=== PATIENT | female | born 1985 | race American Indian/Alaskan Native ===

== ENCOUNTER 2018-11-13 20:02 | Emergency (ER) | payer MEDICAID ==
--- NOTE | 2018-11-13 20:09 | Emergency Department Report ---
Blank Doc - Documentation Documentation: This is a 32-year-old female that presents with nausea vomiting. Patient had a dental abscess and was seen by a dentist and was given Amox and "pain medicatoin" and now has nausea with vomiting. Denies fever. This initial assessment diagnostic orders/clinical plan/treatment(s) is/are subject to change based on patient's health status, clinical progression and re- assessment by fellow clinical providers in the ED. Further treatment and workup at subsequent clinical providers discretion. Patient/guardians urged not to elope from ED s their condition may be serious if not clinically assessed and managed. Initial orders include: 1-Patient sent to MAIN for further evaluation and treatment 2- labs
[2018-11-13 20:12] VITALS: BP 140/85
[2018-11-13 20:37] LABS: Basophils # (Auto) 0.1 K/mm3 (0.0-0.1); Basophils % (Auto) 0.8 % (0.0-1.8); Eosinophils # (Auto) 0.1 K/mm3 (0.0-0.4); Eosinophils % (Auto) 1.7 % (0.0-4.3); Hematocrit 37.7 % (30.3-42.9); Hemoglobin 12.4 gm/dl (10.1-14.3); Lymphocytes # (Auto) 1.9 K/mm3 (1.2-5.4); Lymphocytes % (Auto) 31.4 % (13.4-35.0); Mean Corpuscular HGB Conc 33 % (30-34); Mean Corpuscular Volume 83 fl (79-97); Monocytes # (Auto) 0.7 K/mm3 (0.0-0.8); Monocytes % (Auto) 11.2 % (0.0-7.3); Platelet Count 381 K/mm3 (140-440); Red Blood Count 4.56 M/mm3 (3.65-5.03); Red Cell Distribution Width 15.1 % (13.2-15.2)
[2018-11-13 20:51] LABS: Alanine Aminotransferase 17 units/L (7-56); Albumin 3.8 g/dL (3.9-5); BUN/Creatinine Ratio 6; Blood Urea Nitrogen 5 mg/dL (7-17); Hemolysis Index 15
[2018-11-13 20:59] LABS: Bacteria,Urine 1+ /HPF (Negative); Bilirubin,Urine NEG (Negative); Blood,Urine NEG (Negative); Color,Urine Amber (Yellow); Mucus,Urine 1+ /HPF
[2018-11-13] MEDS ORDERED: TORADOL IV ONE (22:06)
[2018-11-13] MEDS ORDERED: NACL 0.9% 1000 ML 1,000 ML IV ONE (22:06)
[2018-11-13] MEDS ORDERED: ZOFRAN IV ONE (22:06)
[2018-11-13] MEDS ORDERED: ROCEPHIN/NS 1 GM/50 ML 1 GM/50 ML BAG IV ONE (22:06)
--- NOTE | 2018-11-13 22:54 | Emergency Department Report ---
ED ENT HPI - General Chief complaint: Nausea/Vomiting/Diarrhea Stated complaint: SORE THROAT PAIN Time Seen by Provider: 11/13/18 20:07 Source: EMS Mode of arrival: Ambulatory Limitations: No Limitations - History of Present Illness Initial comments: Patient 32-year-old female with history of infected dental caries patient currently been treated for same and started to have nausea and vomiting after starting amoxicillin there is no hives or shortness of breath no wheezing no stridor patient has tolerated penicillin previously patient states no anaphylaxis symptoms nausea and vomiting as generalized 2 episodes today last 4 hours ago last by mouth intake 1 hour ago there is no fever no chills no back pain no vaginal discharge no urgency frequency or hematuria symptoms are relieved by nothing tried, symptoms are exacerbated by nothing, complaint: tooth pain Onset/Timin -: week(s) Location: tooth # (17&18) Severity: moderate Severity scale (0 -10): 6 Quality: aching, sharp Consistency: constant Improves with: none Worsens with: eating, other (hot and cold stimuli ) Context- Dental: history of dental caries, poor dental care Associated Symptoms: fever, gum swelling, toothache - Related Data Previous Rx's Medication Instructions Recorded Last Taken Type Acetaminophen [Tylenol Extra 1,000 mg PO QID PRN #30 tablet 11/13/18 Unknown Rx Strength] Chlorhexidine Mouthwash [Peridex] 15 ml MM BID #1 bottle 11/13/18 Unknown Rx Clindamycin [Clindamycin CAP] 300 mg PO Q6H 10 Days #30 capsule 11/13/18 Unknown Rx Allergies Allergy/AdvReac Type Severity Reaction Status Date / Time No Known Allergies Allergy Unverified 11/13/18 20:05 ED Dental HPI - General Chief complaint: Nausea/Vomiting/Diarrhea Stated complaint: SORE THROAT PAIN Time Seen by Provider: 11/13/18 20:07 Source: EMS Mode of arrival: Ambulatory Limitations: No Limitations - Related Data Previous Rx's Medication Instructions Recorded Last Taken Type Acetaminophen [Tylenol Extra 1,000 mg PO QID PRN #30 tablet 11/13/18 Unknown Rx Strength] Chlorhexidine Mouthwash [Peridex] 15 ml MM BID #1 bottle 11/13/18 Unknown Rx Clindamycin [Clindamycin CAP] 300 mg PO Q6H 10 Days #30 capsule 11/13/18 Unknown Rx Allergies Allergy/AdvReac Type Severity Reaction Status Date / Time No Known Allergies Allergy Unverified 11/13/18 20:05 ED Review of Systems ROS: Stated complaint: SORE THROAT PAIN Other details as noted in HPI Constitutional: denies: chills, fever Eyes: denies: eye pain, eye discharge, vision change ENT: dental pain (current L) Respiratory: denies: cough, shortness of breath, wheezing Cardiovascular: denies: chest pain, palpitations Endocrine: no symptoms reported Gastrointestinal: abdominal pain (superpubic ), nausea, vomiting. denies: diarrhea, constipation, hematemesis, melena, hematochezia Genitourinary: denies: urgency, dysuria, frequency, hematuria, discharge Musculoskeletal: denies: back pain, joint swelling, arthralgia Skin: denies: rash, lesions Neurological: denies: headache, weakness, paresthesias Psychiatric: denies: anxiety, depression Hematological/Lymphatic: denies: easy bleeding, easy bruising ED Past Medical Hx - Past Medical History Additional medical history: Bronchitis - Surgical History Additional Surgical History: - Social History Smoking Status: Never Smoker Substance Use Type: None - Medications Home Medications: Home Medications Medication Instructions Recorded Confirmed Last Taken Type Acetaminophen [Tylenol Extra 1,000 mg PO QID PRN #30 tablet 11/13/18 Unknown Rx Strength] Chlorhexidine Mouthwash [Peridex] 15 ml MM BID #1 bottle 11/13/18 Unknown Rx Clindamycin [Clindamycin CAP] 300 mg PO Q6H 10 Days #30 capsule 11/13/18 Unknown Rx ED Physical Exam - General Limitations: No Limitations General appearance: alert, in no apparent distress - Head Head exam: Present: atraumatic, normocephalic - Eye Eye exam: Present: normal appearance, PERRL, EOMI Pupils: Present: normal accommodation - ENT ENT exam: Present: mucous membranes moist, TM's normal bilaterally, normal ext ernal ear exam - Expanded ENT Exam Expanded Mouth exam: Absent: trismus Teeth exam: Present: dental caries, fractured tooth #, dental tenderness # (17&18 mild gum erythema no focal abscess no facial swelling ) Throat exam: Positive: tonsillar erythema. Negative: tonsillomegaly (his family does), tonsillar exudate, R peritonsillar mass, L peritonsillar mass - Neck Neck exam: Present: normal inspection, full ROM. Absent: tenderness (the), lymphadenopathy, thyromegaly - Respiratory Respiratory exam: Present: normal lung sounds bilaterally. Absent: respiratory distress, wheezes, stridor, chest wall tenderness - Cardiovascular Cardiovascular Exam: Present: regular rate, normal rhythm, normal heart sounds. Absent: systolic murmur, diastolic murmur, rubs, gallop - GI/Abdominal GI/Abdominal exam: Present: soft, normal bowel sounds. Absent: distended, tenderness, guarding, rebound, rigid, bruit, hernia - Rectal Rectal exam: Present: deferred - Extremities Exam Extremities exam: Present: normal inspection, full ROM, normal capillary refill. Absent: tenderness, pedal edema, joint swelling, calf tenderness - Back Exam Back exam: Present: normal inspection, full ROM. Absent: tenderness, CVA tenderness (R), CVA tenderness (L), muscle spasm (Z), paraspinal tenderness, vertebral tenderness, rash noted (he) - Neurological Exam Neurological exam: Present: alert, oriented X3, CN II-XII intact, normal gait - Psychiatric Psychiatric exam: Present: normal affect, normal mood - Skin Skin exam: Present: warm, dry, intact, normal color. Absent: rash ED Course Vital Signs 11/13/18 11/13/18 20:06 22:30 Temperature 98.5 F Pulse Rate 78 Respiratory 16 18 Rate Blood Pressure 140/85 O2 Sat by Pulse 100 Oximetry ED Medical Decision Making - Lab Data Result diagrams: 11/13/18 20:15 11/13/18 20:15 Labs 11/13/18 11/13/18 11/13/18 20:15 20:15 20:15 WBC 6.1 RBC 4.56 Hgb 12.4 Hct 37.7 MCV 83 MCH 27 L MCHC 33 RDW 15.1 Plt Count 381 Lymph % (Auto) 31.4 Thayer % (Auto) 11.2 H Eos % (Auto) 1.7 Baso % (Auto) 0.8 Lymph # 1.9 Thayer # 0.7 Eos # 0.1 Baso # 0.1 Seg Neutrophils % 54.9 Seg Neutrophils # 3.4 Sodium 138 Potassium 4.3 Chloride 102.8 Carbon Dioxide 24 Anion Gap 16 BUN 5 L Creatinine 0.8 Estimated GFR > 60 BUN/Creatinine Ratio 6 Glucose 103 H Calcium 9.0 Total Bilirubin 0.30 AST 15 ALT 17 Alkaline Phosphatase 75 Total Protein 8.3 H Albumin 3.8 L Albumin/Globulin Ratio 0.8 HCG, Qual Negative Urine Color Urine Turbidity Urine pH Ur Specific [place] Urine Protein Urine Glucose (UA) Urine Ketones Urine Blood Urine Nitrite Urine Bilirubin Urine Urobilinogen Ur Leukocyte Esterase Urine WBC (Auto) Urine RBC (Auto) U Epithel Cells (Auto) Urine Bacteria (Auto) Urine Mucus 11/13/18 20:32 WBC RBC Hgb Hct MCV MCH MCHC RDW Plt Count Lymph % (Auto) Thayer % (Auto) Eos % (Auto) Baso % (Auto) Lymph # Thayer # Eos # Baso # Seg Neutrophils % Seg Neutrophils # Sodium Potassium Chloride Carbon Dioxide Anion Gap BUN Creatinine Estimated GFR BUN/Creatinine Ratio Glucose Calcium Total Bilirubin AST ALT Alkaline Phosphatase Total Protein Albumin Albumin/Globulin Ratio HCG, Qual Urine Color Merna Urine Turbidity Clear Urine pH 5.0 Ur Specific [place] 1.029 Urine Protein 30 mg/dl Urine Glucose (UA) Neg Urine Ketones Neg Urine Blood Neg Urine Nitrite Neg Urine Bilirubin Neg Urine Urobilinogen 4.0 Ur Leukocyte Esterase Mod Urine WBC (Auto) 7.0 H Urine RBC (Auto) 4.0 U Epithel Cells (Auto) 4.0 Urine Bacteria (Auto) 1+ Urine Mucus 1+ - Radiology Data Radiology results: report reviewed, image reviewed nonobstructive gas pattern, - Medical Decision Making These are infected dental caries UA positive for moderate leukocytes Y several small red blood cells given nausea vomiting patient has no history of renal stones denies hematuria denies CVA tenderness denies voiding problem patient is tolerating by mouth intake without signs or symptoms plan treat for UTI with Rocephin 1 g IV piggyback in ED by mouth antibiotics 2 clindamycin by mouth twice a day 3 times a day Peridex mouth rinse patient will follow [facility] dental clinic tomorrow patient will return the ED should symptoms worsen patient verbalizes understanding and agreement with same procedure was stable condition at this time Critical care attestation.: If time is entered above; I have spent that time in minutes in the direct care of this critically ill patient, excluding procedure time. ED Disposition Clinical Impression: Infected dental caries, Dysuria Disposition: TO HOME OR SELFCARE Is pt being admited?: No Does the pt Need Aspirin: No Condition: Stable Instructions: Dental Caries (ED), Urinary Tract Infection in Women (ED) Prescriptions: Acetaminophen [Tylenol Extra Strength] 1,000 mg PO QID PRN #30 tablet PRN Reason: pain Chlorhexidine Mouthwash [Peridex] 15 ml MM BID #1 bottle Clindamycin [Clindamycin CAP] 300 mg PO Q6H 10 Days #30 capsule Referrals: [facility] [Outside] - 3-5 Days Forms: Work/School Release Form(ED) Time of Disposition: 23:07
--- NOTE | 2018-11-13 23:00 | XRay Report ---
FINAL REPORT EXAM: XR ABD SERIES W CXR 1V HISTORY: nausea vomiting TECHNIQUE: Frontal view of the chest and supine and upright views of the abdomen. PRIORS: None. FINDINGS: The chest x-ray demonstrates clear lungs and a normal cardiomediastinal silhouette. Abdominal radiographs show a normal bowel gas pattern. There is no evidence of ileus or obstruction. The bones and soft tissues are unremarkable. IMPRESSION: No evidence of acute cardiopulmonary or abdominal disease.
== END 2018-11-14 | disposition home or self-care (01) ==
LOC: ED 20:02
DX: K02.9 Dental caries, unspecified (principal); K04.7 Periapical abscess without sinus; R30.0 Dysuria
CPT/HCPCS: 36415; 74022; 80053; 81001; 84703; 85025; 96365; 96375; 99284; J0696; J1885; J2405; J7030